=== PATIENT | female | born 1940 | race Caucasian/White ===

== ENCOUNTER 2019-03-15 06:34 | Day surgery (SDC) | payer OTHER ==
[~2019-03-15 06:34] MED LIST: AMOX1TAB12 PO; BISOPROLOL-HCTZ1 TA5; BISOPROLOL-HCTZ1 TA6 PO; CATAFLAM50 MG PO; CLARITIN5 MG PO; ENDOCET 5/325 T1 TAB
== END 2019-03-15 12:45 | disposition home or self-care (01) ==
LOC: AMB-ENDOS 06:34
DX: K64.1 Second degree hemorrhoids (principal)